=== PATIENT | male | born 1975 | race Caucasian/White ===

== ENCOUNTER 2017-05-13 18:01 | Emergency (ER) | payer BC ==
[2017-05-13 18:25] VITALS: BP 143/95
--- NOTE | 2017-05-13 19:38 | RAD ---
INDICATION: Heel injury. TECHNIQUE: 4 views of the left calcaneus were obtained. FINDINGS: There is soft tissue swelling present along the medial aspect of the calcaneus. The bones are in normal alignment. No fracture is seen. Joint spaces appear maintained. IMPRESSION: NO EVIDENCE FOR FRACTURE, IF THE PATIENT'S SYMPTOMS PERSIST RECOMMEND FOLLOW-UP IMAGING.
--- NOTE | 2017-05-13 19:58 | UC ---
Lower Extremity/Ankle HPI - HPI Summary HPI Summary: LEFT HEEL PAIN FOR ONE WEEK. WAS PLAYING SPORTS AND LANDED ON HEEL FORCEFULLY. NO ANKLE PAIN. NO BACK PAIN. NO KNEE PAIN. NO FOOT PAIN. NO ACHILLES PAIN. PAIN PERSISTS ONLY IN LEFT HEEL. - History of Current Complaint Chief Complaint: UCLowerExtremity Stated Complaint: LEFT HEEL PAIN Time Seen by Provider: 05/13/17 18:11 Hx Obtained From: Patient Onset/Duration: Sudden Onset, Lasting Weeks, Still Present Severity Initially: Moderate Severity Currently: Moderate Aggravating Factor(s): Standing, Ambulation - Risk Factors Gout Risk Factors: Negative DVT Risk Factors: Negative Septic Arthritis Risk Factor: Negative - Allergies/Home Medications Allergies/Adverse Reactions: Allergies Allergy/AdvReac Type Severity Reaction Status Date / Time No Known Allergies Allergy Verified 05/13/17 18:26 Home Medications: Home Medications NK [No Home Medications Reported] 05/13/17 [History Confirmed 05/13/17] PMH/Surg Hx/FS Hx/Imm Hx Previously Healthy: Yes - Surgical History Surgical History: Yes Surgery Procedure, Year, and Place: T&A. Vascetomy - Family History Known Family History: Negative: Other - NO JOINT LAXITY - Social History Occupation: Employed Full-time Alcohol Use: Daily Alcohol Amount: 3 12 oz cans of beer about 5 days a week Substance Use Type: None Smoking Status (MU): Never Smoked Tobacco Review of Systems Constitutional: Negative Skin: Negative Eyes: Negative ENT: Negative Respiratory: Negative Cardiovascular: Negative Gastrointestinal: Negative Genitourinary: Negative Motor: Negative Neurovascular: Negative Musculoskeletal: Arthralgia, Myalgia, Other: - TENDERNESS LEFT HEEL Neurological: Negative Psychological: Negative All Other Systems Reviewed And Are Negative: Yes Physical Exam Triage Information Reviewed: Yes Appearance: Well-Appearing, No Pain Distress, Well-Nourished Vital Signs: Initial Vital Signs Temp 97.9 F 05/13/17 18:20 Pulse 84 05/13/17 18:20 Resp 16 05/13/17 18:20 BP 143/95 05/13/17 18:20 Pulse Ox 98 05/13/17 18:20 Vital Signs Reviewed: Yes Eye Exam: Normal ENT Exam: Normal ENT: Positive: Normal ENT inspection, TMs normal Dental Exam: Normal Neck exam: Normal Neck: Positive: Supple, Nontender Respiratory Exam: Normal Respiratory: Positive: Chest non-tender, Lungs clear, Normal breath sounds, No respiratory distress, No accessory muscle use Cardiovascular Exam: Normal Cardiovascular: Positive: RRR, No Murmur, Pulses Normal Abdominal Exam: Normal Musculoskeletal Exam: Normal Musculoskeletal: Positive: Strength Intact Neurological Exam: Normal Psychological Exam: Normal Skin Exam: Normal Lower Extremity Course/Dx - Differential Dx/Diagnosis Differential Diagnosis/HQI/PQRI: Fracture (Closed), Sprain, Strain Provider Diagnoses: LEFT HEEL CONTUSION Discharge - Discharge Plan Condition: Stable Disposition: HOME Patient Education Materials: Foot Contusion (ED) Referrals: [facility] [place] [facility] [Outside] [facility] [place] [facility] [Outside] No Primary Care Phys,NOPCP [Primary Care Provider] - Additional Instructions: PRIMARY CARE: There are four major types of clinical preventive care: immunizations, screening , behavioral counseling (sometimes referred to as lifestyle changes), and chemoprevention. All four apply throughout the life span. It is important to establish and to have access to a Primary Care Physician, not only for follow- up regrding acute and chronic problems, but also for preventative care.
== END 2017-05-13 19:55 | disposition home or self-care (01) ==
LOC: UCCORT 18:01
DX: S90.32XA Contusion of left foot, initial encounter (principal); X58.XXXA Exposure to other specified factors, initial encounter; Y93.79 Activity, other specified sports and athletics; Y92.9 Unspecified place or not applicable
CPT/HCPCS: 99202; G0463

== ENCOUNTER 2018-05-24 09:08 | Emergency (ER) | payer SELFPAY ==
--- NOTE | 2018-05-24 10:06 | RAD ---
INDICATION: Cough and shortness of breath. COMPARISON: There are no relevant prior studies available for comparison. TECHNIQUE: Dual-energy PA and lateral views of the chest were obtained. FINDINGS: The heart is within normal limits in size. Mediastinal and hilar contours appear within normal limits. There are bilateral interstitial infiltrates which are most prominent at the lung bases. No pleural effusion is seen. IMPRESSION: BILATERAL INTERSTITIAL INFILTRATES SUGGESTIVE OF PNEUMONIA LESS LIKELY CHRONIC INTERSTITIAL LUNG DISEASE. RECOMMEND FOLLOW-UP CHEST X-RAYS TO RESOLUTION.
--- NOTE | 2018-05-24 10:33 | UC ---
Respiratory Complaint HPI - HPI Summary HPI Summary: cough x 5 days cough is productive, yellow sputum, + fever, chills, body aches, fatigue, +SOB - History of Current Complaint Chief Complaint: UCRespiratory Stated Complaint: SOB Time Seen by Provider: 05/24/18 09:33 Hx Obtained From: Patient Onset/Duration: Gradual Onset, Lasting Days - 5 Timing: Constant Severity Initially: Moderate Severity Currently: Moderate Pain Intensity: 0 Character: Cough: Productive Aggravating Factors: Exertion, Deep Breaths Alleviating Factors: Nothing Associated Signs And Symptoms: Positive: Fever, Chills, URI. Negative: Wheezing , Hemoptysis - Allergies/Home Medications Allergies/Adverse Reactions: Allergies Allergy/AdvReac Type Severity Reaction Status Date / Time Pertussis Vaccines Allergy coma Verified 05/24/18 09:28 Home Medications: Home Medications D-Methorphan/PE/Acetaminophen [Vicks Dayquil Liquid] 30 ml PO TID PRN 05/24/18 [ History Confirmed 05/24/18] Dextromethorphn/Acetaminoph/Cp [Vicks Nyquil Cold & Flu N] 1 liq PO BEDTIME PRN 05/24/18 [History Confirmed 05/24/18] Ibuprofen TAB* [Motrin TAB* 800 MG] 800 mg PO QID PRN 05/24/18 [History Confirmed 05/24/18] PMH/Surg Hx/FS Hx/Imm Hx Previously Healthy: Yes - Surgical History Surgical History: Yes Surgery Procedure, Year, and Place: T&A. Vascetomy - Family History Known Family History: Negative: Diabetes, Other - NO JOINT LAXITY - Social History Alcohol Use: Weekly Alcohol Amount: 3 12 oz cans of beer about 5 days a week Substance Use Type: None Smoking Status (MU): Former Smoker When Did the Patient Quit Smoking/Using Tobacco: 2002 Review of Systems Constitutional: Fever, Chills, Fatigue Skin: Negative Eyes: Negative ENT: Negative Respiratory: Shortness Of Breath, Cough Cardiovascular: Negative Is Patient Immunocompromised?: No All Other Systems Reviewed And Are Negative: Yes Physical Exam Triage Information Reviewed: Yes Appearance: Well-Nourished, Pain Distress - fatigue Vital Signs: Initial Vital Signs Temp 98.1 F 05/24/18 09:20 Pulse 87 05/24/18 09:20 Resp 18 05/24/18 09:20 BP 133/83 05/24/18 09:20 Pulse Ox 95 05/24/18 09:20 Vital Signs Reviewed: Yes Eyes: Positive: Conjunctiva Clear ENT: Positive: Normal ENT inspection, Hearing grossly normal, Pharynx normal Neck: Positive: Supple, Nontender, No Lymphadenopathy Respiratory: Positive: Chest non-tender, No respiratory distress, Crackles - diffuse Cardiovascular: Positive: RRR, No Murmur, Pulses Normal Skin Exam: Normal UC Diagnostic Evaluation - Laboratory O2 Sat by Pulse Oximetry: 97 Diagnostic Studies Comment: chest xray : IMPRESSION: BILATERAL INTERSTITIAL INFILTRATES SUGGESTIVE OF PNEUMONIA LESS LIKELY. CHRONIC INTERSTITIAL LUNG DISEASE. RECOMMEND FOLLOW-UP CHEST X-RAYS TO RESOLUTION. Respiratory Course/Dx - Differential Dx/Diagnosis Provider Diagnoses: pnuemonia Discharge - Sign-Out/Discharge Documenting (check all that apply): Patient Departure All imaging exams completed and their final reports reviewed: Yes - Discharge Plan Condition: Stable Disposition: HOME Prescriptions: Codeine Phosphate/Guaifenesin [Cheratussin AC] 10 ml PO Q8H #120 ml MDD 30 ml per day DOXYcycline CAP(*) [DOXYcycline 100MG CAP(*)] 100 mg PO BID #20 cap Patient Education Materials: Community Acquired Pneumonia (ED) Forms: *Work Release Referrals: No Primary Care Phys,NOPCP [Primary Care Provider] - 5 Days - Billing Disposition and Condition Condition: STABLE Disposition: Home
[2018-05-24 10:41] VITALS: BP 124/80
== END 2018-05-24 10:29 | disposition home or self-care (01) ==
LOC: UCCORT 09:08
DX: J18.9 Pneumonia, unspecified organism (principal); Z88.7 Allergy status to serum and vaccine; Z87.891 Personal history of nicotine dependence
CPT/HCPCS: 71046; 99212; G0463